=== PATIENT | female | born 1970 | race American Indian/Alaskan Native ===

== ENCOUNTER 2019-11-17 09:29 | Emergency (ER) | payer SELFPAY ==
[2019-11-17 09:46] VITALS: BP 140/83
--- NOTE | 2019-11-17 09:54 | Emergency Department Report ---
Chief Complaint: Extremity Injury, Lower Stated Complaint: RT LEG/KNEE SWELLING/PAIN - HPI History of Present Illness: 49 female comes for right knee pain and swelling. Denies any falls or injury. 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 - Exam Vital Signs: Vital Signs 11/17/19 09:44 Temperature 97.8 F Pulse Rate 82 Respiratory 18 Rate Blood Pressure 140/83 O2 Sat by Pulse 100 Oximetry MSE screening note: Focused history and physical exam performed. Due to findings the following was ordered: 49 female comes for right knee pain and swelling. Denies any falls or injury. 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 ED Disposition for MSE Disposition: Z- MED SCREENING EXAM-LEFT Is pt being admited?: No Does the pt Need Aspirin: No Condition: Stable Forms: Work/School Release Form(ED)
== END 2019-11-17 10:15 | disposition left against medical advice (07) ==
LOC: ED 09:29
DX: M25.561 Pain in right knee (principal); Z53.21 Procedure and treatment not carried out due to patient leaving prior to being seen by health care provider

== ENCOUNTER 2020-03-13 19:39 | Emergency (ER) | payer OTHER ==
[2020-03-13 19:55] VITALS: BP 143/91
--- NOTE | 2020-03-13 20:11 | Event Note ---
ED Screening Note ED Screening Note: l shoulder pain hx htn-- not taking meds psh choley breast reduction This initial assessment/diagnostic orders/clinical plan/treatment(s) is/are subject to change based on patients health status, clinical progression and re- assessment by fellow clinical providers in the ED. Further treatment and workup at subsequent clinical providers discretion. Patient/guardian urged not to elope from the ED as their condition may be serious if not clinically assessed and managed. Initial orders include: xr
[2020-03-13] MEDS ORDERED: HYDROcodone/ACETAMINOPHEN 10-325MG TAB PO ONE (20:56)
--- NOTE | 2020-03-13 21:07 | XRay Report ---
LEFT SHOULDER 3 VIEWS INDICATION: MAIN. COMPARISON: No relevant prior imaging study available. FINDINGS: No acute, displaced fracture or dislocation is seen. There is mild acromioclavicular joint space narr owing. No foreign bodies. IMPRESSION: 1. No acute findings. Signer Name: Bryant Ocampo MD Signed: 03/13/2020 9:02 PM Workstation Name: [id number]
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
== END 2020-03-13 21:34 | disposition home or self-care (01) ==
LOC: ED 19:39
DX: S46.912A Strain of unspecified muscle, fascia and tendon at shoulder and upper arm level, left arm, initial encounter (principal); Z90.49 Acquired absence of other specified parts of digestive tract; Z98.890 Other specified postprocedural states; Z79.899 Other long term (current) drug therapy; Y04.8XXA Assault by other bodily force, initial encounter; Y93.89 Activity, other specified; Y92.89 Other specified places as the place of occurrence of the external cause; Y99.8 Other external cause status

== ENCOUNTER 2020-08-14 18:39 | Emergency (ER) | payer SELFPAY ==
[2020-08-14 18:55] VITALS: BP 142/82
--- NOTE | 2020-08-14 20:34 | XRay Report ---
BILATERAL KNEE 4 VIEW(S) INDICATION / CLINICAL INFORMATION: MAIN COMPARISON: None available. FINDINGS: BONES / JOINT(S): No acute fracture or subluxation. Moderate tricompartmental arthrosis noted bilater ally with large marginal osteophytes. SOFT TISSUES: Small left suprapatellar joint effusion. Moderate right suprapatellar joint effusion. ADDITIONAL FINDINGS: None. Signer Name: Balta Flores MD Signed: 08/14/2020 8:29 PM Workstation Name: [id number]
--- NOTE | 2020-08-14 20:34 | XRay Report ---
CHEST 2 VIEWS INDICATION / CLINICAL INFORMATION: MAIN. COMPARISON: None available. FINDINGS: SUPPORT DEVICES: None. HEART / MEDIASTINUM: No significant abnormality. LUNGS / PLEURA: No significant pulmonary or pleural abnormality. No pneumothorax. ADDITIONAL FINDINGS: Skin joceline noted over the right anterior hemithorax. IMPRESSION: 1. No acute findings. Signer Name: Balta Flores MD Signed: 08/14/2020 8:30 PM Workstation Name: [id number]
[2020-08-14] MEDS ORDERED: IBUPROFEN 800 MG TAB PO ONE (23:11)
[2020-08-14] MEDS ORDERED: ACETAMINOPHEN 500 MG TAB PO ONE (23:11)
[2020-08-14] MEDS ORDERED: IBUPROFEN 800 MG TAB ONE (23:11)
[2020-08-14] MEDS ORDERED: ACETAMINOPHEN 500 MG TAB ONE (23:11)
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
== END 2020-08-15 00:30 | disposition home or self-care (01) ==
LOC: ED 18:39
DX: M25.562 Pain in left knee (principal); R07.89 Other chest pain; R10.9 Unspecified abdominal pain; Z90.49 Acquired absence of other specified parts of digestive tract; Z79.899 Other long term (current) drug therapy; V49.49XA Driver injured in collision with other motor vehicles in traffic accident, initial encounter; Y93.89 Activity, other specified; Y92.488 Other paved roadways as the place of occurrence of the external cause; Y99.8 Other external cause status
CPT/HCPCS: 71046; 93005; 99283